=== PATIENT | female | born 1995 | race Caucasian/White ===

== ENCOUNTER 2018-07-23 06:54 | Emergency (ER) | payer MEDICAID, OTHER ==
[~2018-07-23] VITALS: Ht 170.2 cm; Wt 58.1 kg
[2018-07-23 07:38] VITALS: BP 127/63
== END 2018-07-23 07:44 | disposition home or self-care (01) ==
LOC: ER 06:54
DX: F41.9 Anxiety disorder, unspecified (principal); F12.10 Cannabis abuse, uncomplicated; R00.0 Tachycardia, unspecified
CPT/HCPCS: 99283; 99284